=== PATIENT | male | born 1975 | race Hispanic/Latino ===

== ENCOUNTER 2021-06-27 07:02 | Day surgery (SDC) | payer MEDICARE ==
[2021-06-20 12:49] LABS: BASOPHILS % (AUTO) 0.6 % (0.0-5.0); EOSINOPHILS % (AUTO) 3.8 % (0.0-8.0); HEMATOCRIT 44.7 % (42-54); LYMPHOCYTES % (AUTO) 26.1 % (21.0-51.0); MEAN CORPUSCULAR HEMOGLOBIN 29.3 pg (27.0-33.0); MEAN CORPUSCULAR HGB CONC 33.1 g/dL (32.0-36.0); MEAN CORPUSCULAR VOLUME 88.5 fL (79-99); MONOCYTES % (AUTO) 7.4 % (3.0-13.0); NEUTROPHILS % (AUTO) 61.7 % (40.0-77.0); PLATELET COUNT (AUTO) 208 K/uL (130-400); RED BLOOD CELL COUNT(AUTO) 5.05 MIL/uL (4.50-6.20); RED CELL DISTRIBUTION WIDTH 13.8 % (11.0-15.5); WHITE BLOOD COUNT (AUTO) 8.4 K/uL (4.8-10.8)
[2021-06-20 13:01] LABS: CREATININE 1.1 mg/dL (0.5-1.5); POTASSIUM 4.3 mmol/L (3.5-5.1)
[~2021-06-27] VITALS: Ht 175.3 cm; Wt 137.7 kg
[2021-06-27] VITALS (7 sets, daily range): BP systolic 91–127; BP diastolic 60–72
[~2021-06-27 07:02] MED LIST: 0.9%NACL 1000ML 1,000 ML IV SCH; DULA3PEN SQ; HYDR473S51 PO; INSU500I SQ; METF-446 PO; OMEP40CA21 PO
[2021-06-27] MEDS ORDERED: PANT40TA54 PO (07:48)
[2021-06-27] MEDS ORDERED: ROSU10TA28 PO (07:48)
[2021-06-27] MEDS ORDERED: MONT10TA32 PO (07:48)
[2021-06-27] MEDS ORDERED: OLME5TAB6 PO (07:48)
[2021-06-27] MEDS ORDERED: FLUT1AER IH (07:48)
[2021-06-27] MEDS ORDERED: MIRT-22 PO (07:48)
[2021-06-27] MEDS ORDERED: FENO48TA10 PO (07:48)
[2021-06-27] MEDS ORDERED: GABA600T10 PO (07:48)
[2021-06-27] MEDS ORDERED: DIPH25TA51 PO (07:48)
[2021-06-27] MEDS ORDERED: SIMETHICONE 40 MG/0.6 ML ML ONE (08:24)
[2021-06-27] MEDS ORDERED: PROPOFOL 10 MG/ML 20ML VIAL IV ONE (09:39)
== END 2021-06-27 10:30 | disposition home or self-care (01) ==
LOC: DAH 07:02 → ENDO 07:02
PROVIDERS: ATTEND Surgery
DX: K21.9 Gastro-esophageal reflux disease without esophagitis (principal); Z20.822 Contact with and (suspected) exposure to COVID-19; K29.50 Unspecified chronic gastritis without bleeding; E78.5 Hyperlipidemia, unspecified; I10 Essential (primary) hypertension; E66.01 Morbid (severe) obesity due to excess calories; E11.9 Type 2 diabetes mellitus without complications; Z87.891 Personal history of nicotine dependence; Z68.42 Body mass index [BMI] 45.0-49.9, adult; Z79.4 Long term (current) use of insulin; Z79.899 Other long term (current) drug therapy
CPT/HCPCS: 36415; 43239; 80048; 82948; 85025; 87635; 88305; 88342; A4606; C9803; J2704; J7030

== ENCOUNTER → 2024-03-15 | Outpatient (CLI) | payer MEDICARE ==
[~2024-03-15] MED LIST changes: -0.9%NACL 1000ML 1,000 ML IV SCH; +DIPH25TA51 PO; +FENO48TA10 PO; +FLUT1AER IH; +GABA600T10 PO; +MIRT-22 PO; +MONT-39 PO; +OLME5TAB29 PO; -OMEP40CA21 PO; +PANT40TA54 PO; +ROSU10TA72 PO
== END | disposition home or self-care (01) ==
LOC: RAH 10:33
PROVIDERS: ATTEND Orthopaedic Surgery
DX: M75.121 Complete rotator cuff tear or rupture of right shoulder, not specified as traumatic (principal); N32.89 Other specified disorders of bladder; M19.011 Primary osteoarthritis, right shoulder; M24.111 Other articular cartilage disorders, right shoulder; M89.8X2 Other specified disorders of bone, upper arm; M25.411 Effusion, right shoulder; Z96.0 Presence of urogenital implants
CPT/HCPCS: 73221; 76857

== ENCOUNTER 2024-04-20 06:00 | Day surgery (SDC) | payer MEDICARE ==
[2024-04-18 11:37] LABS: BASOPHILS # (AUTO) 0.04 K/uL (0.00-0.20); BASOPHILS % (AUTO) 0.6 % (0.0-5.0); EOSINOPHILS # (AUTO) 0.01 K/uL (0.00-0.70); EOSINOPHILS % (AUTO) 0.1 % (0.0-8.0); HEMATOCRIT 41.2 % (42-54); IMMATURE GRANULOCYTE ABSOLUTE 0.03 K/uL (0-1); LYMPHOCYTES # (AUTO) 1.2 K/uL (1.0-4.8); LYMPHOCYTES % (AUTO) 16.2 % (21.0-51.0); MEAN CORPUSCULAR HEMOGLOBIN 30.2 pg (27.0-33.0); MEAN CORPUSCULAR HGB CONC 32.5 g/dL (32.0-36.0); MEAN CORPUSCULAR VOLUME 92.8 fL (79-99); MONOCYTES # (AUTO) 0.2 K/uL (0.1-1.0); MONOCYTES % (AUTO) 2.1 % (3.0-13.0); NEUTROPHILS # (AUTO) 5.7 K/uL (1.8-7.7); NEUTROPHILS % (AUTO) 80.6 % (40.0-77.0); PLATELET COUNT (AUTO) 246 K/uL (130-400); RED BLOOD CELL COUNT(AUTO) 4.44 MIL/uL (4.50-6.20); RED CELL DISTRIBUTION WIDTH 13.8 % (11.0-15.5); WHITE BLOOD COUNT (AUTO) 7.1 K/uL (4.8-10.8)
[2024-04-18 11:51] LABS: POTASSIUM 4.5 mmol/L (3.5-5.1)
[2024-04-18 12:01] LABS: CREATININE 1.3 mg/dL (0.5-1.3)
[2024-04-18 12:18] LABS: PARTIAL THROMBOPLASTIN TIME 23.4 SEC (26.3-35.5); PROTHROMBIN TIME 10.6 SEC (9.6-11.6)
[2024-04-18 12:44] VITALS: BP 127/80; PULSE 93; RESP 18
[~2024-04-20] VITALS: Ht 175.3 cm; Wt 106.8 kg
[2024-04-20] VITALS (17 sets, daily range): BP systolic 114–139; BP diastolic 43–86; PULSE 67–84; RESP 10–17
[~2024-04-20 06:00] MED LIST changes: -DIPH25TA51 PO; -FENO48TA10 PO; -FLUT1AER IH; +GABA300C PO; -GABA600T10 PO; -HYDR473S51 PO; -INSU500I SQ; +LORA2TAB80 PO; +LOSA25TA41 PO; -METF-446 PO; -MIRT-22 PO; -MONT-39 PO; -OLME5TAB29 PO; -PANT40TA54 PO; -ROSU10TA72 PO; +SIMV-43 PO; +TAMS-1 PO
[2024-04-20] MEDS ORDERED: LIDOCAINE PF 100MG/5ML (2%) SYRINGE 5ML ONE (07:16)
[2024-04-20] MEDS ORDERED: PROPOFOL 10 MG/ML 20ML VIAL IV ONE (07:17)
[2024-04-20] MEDS ORDERED: ROCURONIUM BROMIDE 10MG/1ML 5ML VL ONE (07:17)
[2024-04-20] MEDS ORDERED: FENTANYL CITRATE PF 50 MCG/1 ML 2ML VIAL ONE ×2 (07:17→11:28)
[2024-04-20] MEDS ORDERED: MIDAZOLAM HCL 1 MG/ML 2ML VIAL ONE (07:17)
[2024-04-20] MEDS ORDERED: EPINEPHRINE PF 1MG (1:1,000) 1 MG/ML AMP ONE ×4 (07:24→11:31)
[2024-04-20] MEDS: CEFAZOLIN SODIUM 2 GM VIAL ONE (07:40)
[2024-04-20] MEDS: 0.9%NACL 1000ML 1,000 ML IV ONE (07:41)
[2024-04-20] MEDS ORDERED: ROPIVACAINE 0.5% 5MG/ML 30ML ONE (08:00)
[2024-04-20] MEDS ORDERED: PHENYLEPHRINE HCL 10 MG/ML 1ML VIAL IV ONE (08:36)
[2024-04-20] MEDS ORDERED: EPHEDRINE SULFATE 50 MG/ML AMPULE ONE (08:45)
[2024-04-20] MEDS: CEFAZOLIN SODIUM 2 GM VIAL IVPB ONE (08:50)
[2024-04-20] MEDS ORDERED: DEXAMETHASONE SOD PHOSPHATE 10MG/ML 1ML VIAL ONE (08:52)
[2024-04-20] MEDS ORDERED: ONDANSETRON 4MG INJ ONE (08:52)
[2024-04-20] MEDS ORDERED: GLYCOPYRROLATE 0.2 MG/ML 5 ML VIAL ONE (11:34)
[2024-04-20] MEDS ORDERED: NEOSTIGMINE METHYLSULFATE 1MG/ML IV ONE (11:34)
[2024-04-20] MEDS ORDERED: IBUP-2077 PO (12:00)
[2024-04-20] MEDS ORDERED: HYDR-4060 PO (12:00)
[2024-04-20] MEDS: KETOROLAC 30MG VIAL (30MG/ML) ONE (12:26)
[2024-04-20] MEDS: ONDANSETRON 4MG INJ ONE (12:26)
[2024-04-20] MEDS: MORPHINE 4 MG SYG ONE (12:27)
[2024-04-20] MEDS: FENTANYL CITRATE PF 50 MCG/1 ML 2ML VIAL ONE (12:51)
== END 2024-04-20 13:55 | disposition home or self-care (01) ==
LOC: DAH 06:00
PROVIDERS: ATTEND Orthopaedic Surgery
DX: M75.121 Complete rotator cuff tear or rupture of right shoulder, not specified as traumatic (principal); M25.511 Pain in right shoulder; M75.41 Impingement syndrome of right shoulder; I10 Essential (primary) hypertension; E78.5 Hyperlipidemia, unspecified; E11.9 Type 2 diabetes mellitus without complications; F41.9 Anxiety disorder, unspecified; G89.29 Other chronic pain; E66.9 Obesity, unspecified; K21.9 Gastro-esophageal reflux disease without esophagitis; Z79.84 Long term (current) use of oral hypoglycemic drugs; Z79.899 Other long term (current) drug therapy; Z82.49 Family history of ischemic heart disease and other diseases of the circulatory system; Z79.01 Long term (current) use of anticoagulants; Z68.33 Body mass index [BMI] 33.0-33.9, adult; Z98.84 Bariatric surgery status; Z98.890 Other specified postprocedural states
CPT/HCPCS: 80048; 85025; 85610; 85730; 36415; 29827; 64415; 29826; 82948 ×2; C1713 ×4; A4663; J7030 ×2; J3010 ×3; J1100; J3490 ×3; J2001; J2250; J2704; J2405 ×2; J2270; J1885; J2710; J2795; J2371; J0690 ×2; A6204; C1769; A4930 ×2; A5120; A4215; A4223; A4213; A4222; A4221; G0168; J0171 ×4; A4600

== ENCOUNTER → 2025-01-05 | Outpatient (CLI) | payer MEDICARE ==
[~2025-01-05] MED LIST changes: +HYDR-4060 PO; +IBUP-2077 PO
--- NOTE | 2025-01-05 10:28 | HMCIMG ---
MRI OF THE SHOULDER WITHOUT GADOLINIUM, Clinical Information: Comparison: None Technique: The examination is done with sagittal T1 and inversion recovery sequences, axial GRE sequence and coronal inversion recovery, proton density and T2 weighted [id number] sequences. FINDINGS: High signal within the critical zone of the supraspinatus component of the rotator cuff tendon is seen, without evidence of tear, suggestive of tendinosis. The rest of the rotator cuff tendon structures are preserved. The acromioclavicular joint is hypertrophic. This may cause impingement of the rotator cuff tendon. The coracoclavicular and coracohumeral ligaments are intact. The biceps anchor is well seen, without significant tears. The biceps tendon runs in the bicipital groove without significant high signal intensity to suggest sprain. No displacement is seen from the groove itself. The structures of the labrum are intact; specifically, there is no evidence of SLAP tear. No significant abnormalities of the posterior, inferior, or inferior labral structures are seen either. No paralabral cysts are seen. The superior, middle, and inferior glenohumeral ligaments are intact. Glenohumeral joint cartilage is preserved. There is no evidence of chondromalacia. No loose intra-articular chondroid bodies are identified. The osseous structures of the shoulder joint to include the visualized segments of humeral head, neck, and shaft as well as the glenoid bone itself, the acromion, the coracoid, portions of the scapula and the distal portion of the clavicle are intact. The supraglenoid notch is clear without evidence of space occupying lesions or tumor. The structures of the joint capsule are preserved. The limited examination of the deltoid and the limited visualized portions of the pectoralis major are intact. IMPRESSION: 1. HYPERTROPHIC ACROMIOCLAVICULAR JOINT, WHICH MAY CAUSE IMPINGEMENT OF THE ROTATOR CUFF TENDON. 2. Supraspinatus critical zone region tendinosis.
== END | disposition home or self-care (01) ==
LOC: RAH 08:21
PROVIDERS: ATTEND Orthopaedic Surgery
DX: M67.814 Other specified disorders of tendon, left shoulder (principal); M25.812 Other specified joint disorders, left shoulder
CPT/HCPCS: 73221

== ENCOUNTER → 2025-02-06 | Outpatient (CLI) | payer MEDICARE ==
[~2025-02-06] MED LIST changes: -TAMS-1 PO; +TAMS-55 PO
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
== END | disposition home or self-care (01) ==
LOC: RAH 12:23
PROVIDERS: ATTEND Orthopaedic Surgery
DX: M89.8X2 Other specified disorders of bone, upper arm (principal)
CPT/HCPCS: 73200